=== PATIENT | female | born 1985 | race Hispanic/Latino ===

== ENCOUNTER 2017-10-11 11:38 | Inpatient (IN) | payer BC ==
[~2017-10-11] VITALS: Ht 157.5 cm; Wt 88.9 kg
[2017-10-11 12:20] VITALS: BP 123/62
[2017-10-11] MEDS ORDERED: ACETAMINOPHEN 325 MG TAB PO PRN (13:00)
[2017-10-11] MEDS: LACTATED RINGERS 1000ML 1,000 ML IV SCH ×2 (13:40→18:55)
[2017-10-11] MEDS: DEXAMETHASONE SOD PHOSPHATE 4 MG/ML 1ML VIAL IM SCH ×2 (13:50→18:54)
[2017-10-11] MEDS ORDERED: FERR1TAB22 PO (14:02)
[2017-10-11] MEDS ORDERED: PNV11TAB5 PO (14:02)
[2017-10-11] MEDS ORDERED: IRON1CAP31 PO (14:06)
[2017-10-11 15:35] VITALS: BP 122/70
[2017-10-11 19:56] VITALS: BP 105/68
[2017-10-11 23:07] VITALS: BP 111/63
[2017-10-12] MEDS: DEXAMETHASONE SOD PHOSPHATE 4 MG/ML 1ML VIAL IM SCH ×2 (00:44→06:16)
[2017-10-12] MEDS: LACTATED RINGERS 1000ML 1,000 ML IV SCH ×2 (00:47→06:22)
[2017-10-12 03:23] VITALS: BP 105/56
[2017-10-12 07:42] VITALS: BP 101/54
[2017-10-12 08:26] LABS: HEMATOCRIT 31.1 % (36-48); MEAN CORPUSCULAR HEMOGLOBIN 27.3 pg (27.0-33.0); MEAN CORPUSCULAR HGB CONC 34.2 g/dL (32.0-36.0); MEAN CORPUSCULAR VOLUME 79.8 fL (79-99); PLATELET COUNT (AUTO) 179 K/uL (130-400); RED CELL DISTRIBUTION WIDTH 16.9 % (11.0-15.5); WHITE BLOOD COUNT (AUTO) 8.6 K/uL (4.8-10.8)
[2017-10-12] MEDS: LACTATED RINGERS 1000ML 1,000 ML IV PRN (22:28)
[2017-10-13] MEDS: LACTATED RINGERS 1000ML 1,000 ML IV PRN ×2 (05:42→21:48)
[2017-10-13 07:24] LABS: HEPATITIS Bs ANTIGEN SCREEN P Negative (Negative)
[2017-10-13] MEDS ORDERED: PHARMACY COMMUNICATION MISC SCH (14:15)
[2017-10-13] MEDS: PS CMP PO SCH (14:44)
[2017-10-13] MEDS: VIT C PO SCH (14:44)
[2017-10-13] MEDS: IRON FUM PO SCH (14:44)
[2017-10-13] MEDS: [UNRECOGNIZED DRUG - OTHER] PO SCH (14:44)
[2017-10-13] MEDS: B3 PO SCH (14:44)
[2017-10-14] MEDS: LACTATED RINGERS 1000ML 1,000 ML IV PRN ×2 (05:07→22:01)
[2017-10-14] MEDS: B3 PO SCH (09:53)
[2017-10-14] MEDS: VIT C PO SCH (09:53)
[2017-10-14] MEDS: IRON FUM PO SCH (09:53)
[2017-10-14] MEDS: [UNRECOGNIZED DRUG - OTHER] PO SCH (09:53)
[2017-10-14] MEDS: PS CMP PO SCH (09:53)
[2017-10-15 03:49] VITALS: BP 87/50
[2017-10-15] MEDS: LACTATED RINGERS 1000ML 1,000 ML IV PRN ×2 (05:54→16:06)
[2017-10-15] MEDS: B3 PO SCH (09:00)
[2017-10-15] MEDS: VIT C PO SCH (09:00)
[2017-10-15] MEDS: PS CMP PO SCH (09:00)
[2017-10-15] MEDS: [UNRECOGNIZED DRUG - OTHER] PO SCH (09:00)
[2017-10-15] MEDS: IRON FUM PO SCH (09:00)
[2017-10-15 09:25] VITALS: BP 106/61
[2017-10-15 11:28] VITALS: BP 98/62
[2017-10-15] MEDS: DEXAMETHASONE SOD PHOSPHATE 4 MG/ML 1ML VIAL IM SCH ×2 (13:00→19:00)
[2017-10-15 15:39] VITALS: BP 114/66
[2017-10-15 19:25] VITALS: BP 104/64
[2017-10-15 23:24] VITALS: BP 114/69
[2017-10-16] MEDS: LACTATED RINGERS 1000ML 1,000 ML IV PRN ×2 (02:18→11:22)
[2017-10-16 03:23] VITALS: BP 99/57
[2017-10-16 07:20] VITALS: BP 105/61
[2017-10-16 11:21] VITALS: BP 109/64
[2017-10-16] MEDS: IRON FUM PO SCH (11:22)
[2017-10-16] MEDS: B3 PO SCH (11:22)
[2017-10-16] MEDS: PS CMP PO SCH (11:22)
[2017-10-16] MEDS: VIT C PO SCH (11:22)
[2017-10-16] MEDS: [UNRECOGNIZED DRUG - OTHER] PO SCH (11:22)
[2017-10-16 15:54] VITALS: BP 109/69
[2017-10-16] MEDS: DEXAMETHASONE SOD PHOSPHATE 4 MG/ML 1ML VIAL IM SCH (19:00)
[2017-10-16 19:41] VITALS: BP 103/62
[2017-10-16 23:16] VITALS: BP 97/61
[2017-10-17] MEDS: LACTATED RINGERS 1000ML 1,000 ML IV PRN ×4 (00:02→20:44)
[2017-10-17 03:22] VITALS: BP 98/51
[2017-10-17 07:22] VITALS: BP 98/55
[2017-10-17] MEDS: B3 PO SCH (09:00)
[2017-10-17] MEDS: PS CMP PO SCH (09:00)
[2017-10-17] MEDS: [UNRECOGNIZED DRUG - OTHER] PO SCH (09:00)
[2017-10-17] MEDS: VIT C PO SCH (09:00)
[2017-10-17] MEDS: IRON FUM PO SCH (09:00)
[2017-10-17 11:28] VITALS: BP 95/59
[2017-10-17 15:47] VITALS: BP 95/63
[2017-10-17 19:35] VITALS: BP 101/62
[2017-10-17 23:15] VITALS: BP 105/61
[2017-10-18 03:24] VITALS: BP 93/52
[2017-10-18] MEDS: LACTATED RINGERS 1000ML 1,000 ML IV PRN ×3 (04:35→23:10)
[2017-10-18 07:29] VITALS: BP 100/65
[2017-10-18] MEDS: PS CMP PO SCH (09:00)
[2017-10-18] MEDS: B3 PO SCH (09:00)
[2017-10-18] MEDS: [UNRECOGNIZED DRUG - OTHER] PO SCH (09:00)
[2017-10-18] MEDS: IRON FUM PO SCH (09:00)
[2017-10-18] MEDS: VIT C PO SCH (09:00)
[2017-10-18 11:48] VITALS: BP 99/60
[2017-10-18] MEDS: DEXAMETHASONE SOD PHOSPHATE 4 MG/ML 1ML VIAL IM SCH ×2 (13:00→19:00)
[2017-10-18 15:37] VITALS: BP 103/63
[2017-10-18 19:53] VITALS: BP 100/61
[2017-10-18 23:41] VITALS: BP 103/68
[2017-10-19] MEDS: DEXAMETHASONE SOD PHOSPHATE 4 MG/ML 1ML VIAL IM SCH ×3 (01:00→19:00)
[2017-10-19 03:22] VITALS: BP 100/61
[2017-10-19 07:21] VITALS: BP 106/59
[2017-10-19] MEDS: PS CMP PO SCH (09:23)
[2017-10-19] MEDS: VIT C PO SCH (09:23)
[2017-10-19] MEDS: IRON FUM PO SCH (09:23)
[2017-10-19] MEDS: B3 PO SCH (09:23)
[2017-10-19] MEDS: [UNRECOGNIZED DRUG - OTHER] PO SCH (09:23)
[2017-10-19 11:53] VITALS: BP 102/61
[2017-10-19 15:53] VITALS: BP 100/63
[2017-10-19 19:40] VITALS: BP 80/61
[2017-10-19 23:19] VITALS: BP 102/60
[2017-10-20] MEDS: DEXAMETHASONE SOD PHOSPHATE 4 MG/ML 1ML VIAL IM SCH (01:00)
[2017-10-20 03:39] VITALS: BP 99/60
[2017-10-20 07:33] VITALS: BP 97/64
[2017-10-20] MEDS: PS CMP PO SCH (09:16)
[2017-10-20] MEDS: B3 PO SCH (09:16)
[2017-10-20] MEDS: IRON FUM PO SCH (09:16)
[2017-10-20] MEDS: [UNRECOGNIZED DRUG - OTHER] PO SCH (09:16)
[2017-10-20] MEDS: VIT C PO SCH (09:16)
[2017-10-20 11:25] VITALS: BP 99/58
[2017-10-20 15:59] VITALS: BP 92/57
[2017-10-20 19:41] VITALS: BP 103/64
[2017-10-20 23:00] VITALS: BP 109/60
[2017-10-21 03:21] VITALS: BP 99/53
[2017-10-21 07:42] VITALS: BP 100/60
[2017-10-21 11:38] VITALS: BP 108/50
[2017-10-21] MEDS: VIT C PO SCH (12:56)
[2017-10-21] MEDS: IRON FUM PO SCH (12:56)
[2017-10-21] MEDS: PS CMP PO SCH (12:56)
[2017-10-21] MEDS: [UNRECOGNIZED DRUG - OTHER] PO SCH (12:56)
[2017-10-21] MEDS: B3 PO SCH (12:56)
[2017-10-21 15:37] VITALS: BP 97/51
[2017-10-21 19:29] VITALS: BP 94/65
[2017-10-21 23:13] VITALS: BP 112/62
[2017-10-22 03:13] VITALS: BP 99/61
[2017-10-22 07:22] VITALS: BP 100/66
[2017-10-22] MEDS: VIT C PO SCH (09:00)
[2017-10-22] MEDS: PS CMP PO SCH (09:00)
[2017-10-22] MEDS: IRON FUM PO SCH (09:00)
[2017-10-22] MEDS: [UNRECOGNIZED DRUG - OTHER] PO SCH (09:00)
[2017-10-22] MEDS: B3 PO SCH (09:00)
[2017-10-22 11:20] VITALS: BP 89/51
[2017-10-22 15:33] VITALS: BP 94/64
[2017-10-22 19:42] VITALS: BP 99/65
[2017-10-22 23:35] VITALS: BP 97/58
[2017-10-23 03:05] VITALS: BP 107/75
[2017-10-23 07:44] VITALS: BP 90/56
[2017-10-23] MEDS: PS CMP PO SCH (09:00)
[2017-10-23] MEDS: IRON FUM PO SCH (09:00)
[2017-10-23] MEDS: VIT C PO SCH (09:00)
[2017-10-23] MEDS: [UNRECOGNIZED DRUG - OTHER] PO SCH (09:00)
[2017-10-23] MEDS: B3 PO SCH (09:00)
[2017-10-23 11:25] VITALS: BP 108/66
[2017-10-23] MEDS: DEXAMETHASONE SOD PHOSPHATE 4 MG/ML 1ML VIAL IM SCH ×2 (13:00→19:00)
[2017-10-23 16:10] VITALS: BP 100/62
[2017-10-23 19:39] VITALS: BP 105/66
[2017-10-23 23:22] VITALS: BP 103/63
[2017-10-24 03:39] VITALS: BP 115/69
[2017-10-24] MEDS: DEXAMETHASONE SOD PHOSPHATE 4 MG/ML 1ML VIAL IM SCH ×2 (07:00→13:00)
[2017-10-24 07:46] VITALS: BP 99/58
[2017-10-24] MEDS: [UNRECOGNIZED DRUG - OTHER] PO SCH (09:00)
[2017-10-24] MEDS: B3 PO SCH (09:00)
[2017-10-24] MEDS: VIT C PO SCH (09:00)
[2017-10-24] MEDS: IRON FUM PO SCH (09:00)
[2017-10-24] MEDS: PS CMP PO SCH (09:00)
[2017-10-24 11:49] VITALS: BP 101/60
== END 2017-10-24 12:30 | disposition home or self-care (01) | DRG 781 ==
LOC: OBSVTOIN 11:38 → UNDOADMOB 11:38 → WSH 11:38 → INTOOBSV 11:38 → WSH 10-12 07:40 → LDH 10-12 07:40 → WSH 10-15 09:27
PROVIDERS: ADMIT Specialist; ATTEND Specialist
DX: O41.03X0 Oligohydramnios, third trimester, not applicable or unspecified (principal); O24.419 Gestational diabetes mellitus in pregnancy, unspecified control; O98.813 Other maternal infectious and parasitic diseases complicating pregnancy, third trimester; Z3A.33 33 weeks gestation of pregnancy; Z88.8 Allergy status to other drugs, medicaments and biological substances; Z91.018 Allergy to other foods
CPT/HCPCS: 36415; 59025; 76805; 76815; 76819; 82948; 85027; 86592; 86850; 86900; 86901; 87340; 96360; 96361; G0378; J1100; J7120

== ENCOUNTER 2021-05-25 08:27 | Observation (INO) | payer BC ==
[~2021-05-25] VITALS: Ht 162.6 cm; Wt 89.8 kg
[~2021-05-25 08:27] MED LIST: IRON1CAP31 PO; PNV11TAB5 PO
[2021-05-25] MEDS: DEXAMETHASONE SOD PHOSPHATE 4 MG/ML 1ML VIAL IM SCH ×3 (09:23→21:30)
[2021-05-25 09:34] VITALS: BP 111/67
[2021-05-25 11:03] VITALS: BP 106/57
[2021-05-25 16:35] VITALS: BP 108/61
[2021-05-25 19:48] VITALS: BP 109/66
[2021-05-25 23:08] VITALS: BP 105/61
[2021-05-26] MEDS: DEXAMETHASONE SOD PHOSPHATE 4 MG/ML 1ML VIAL IM SCH (03:11)
[2021-05-26 03:14] VITALS: BP 92/50
[2021-05-26 07:15] VITALS: BP 111/62
== END 2021-05-26 11:00 | disposition home or self-care (01) ==
LOC: LDH 08:27 → WSH 09:40
PROVIDERS: ADMIT Specialist; ATTEND Specialist
DX: O26.893 Other specified pregnancy related conditions, third trimester (principal); R10.2 Pelvic and perineal pain; Z3A.29 29 weeks gestation of pregnancy; Z79.899 Other long term (current) drug therapy
CPT/HCPCS: 59025; 82948 ×5; 96372 ×3; G0378 ×26; J1100 ×4

== ENCOUNTER 2021-06-27 21:07 | Observation (INO) | payer BC ==
[~2021-06-27] VITALS: Ht 162.6 cm; Wt 94.3 kg
[2021-06-27 21:08] VITALS: BP 119/77
[2021-06-27 21:47] LABS: APPEARANCE,URINE Cloudy (CLEAR); BILIRUBIN,URINE Negative (NEGATIVE); COLOR,URINE Yellow (YELLOW); GLUCOSE, URINE (UA) Negative (NEGATIVE); KETONES,URINE Negative (NEGATIVE); LEUKOCYTE ESTERASE ,URINE Small (NEGATIVE); NITRATE,URINE Negative (NEGATIVE); OCCULT BLOOD,URINE Negative (NEGATIVE); PROTEIN,URINE Negative (NEGATIVE)
[2021-06-27 21:56] LABS: RBC,URINE 0-1 /HPF (0-1)
[2021-06-27 21:57] LABS: AMORPHOUS SEDIMENT,UR Few /LPF (None Seen); BACTERIA,URINE Few /HPF (None Seen); MUCUS,URINE Rare LPF (None Seen); SQUAMOUS EPITHELIAL CELL,UR Moderate /HPF (0-2)
== END 2021-06-27 22:21 | disposition home or self-care (01) ==
LOC: EDH 21:07 → LDH 21:19 → UNDOADMOB 21:23
PROVIDERS: ADMIT Specialist; ATTEND Specialist
DX: O26.893 Other specified pregnancy related conditions, third trimester (principal); R10.32 Left lower quadrant pain; O24.410 Gestational diabetes mellitus in pregnancy, diet controlled; Z3A.34 34 weeks gestation of pregnancy
CPT/HCPCS: 81001; G0378; G0379

== ENCOUNTER 2021-07-05 15:36 | Inpatient (IN) | payer BC ==
[~2021-07-05] VITALS: Ht 162.6 cm; Wt 96.6 kg
[2021-07-05] MEDS ORDERED: LACTATED RINGERS 1000ML 1,000 ML IV ONE (16:57)
[2021-07-05 17:02] LABS: APPEARANCE,URINE Clear (CLEAR); BILIRUBIN,URINE Negative (NEGATIVE); COLOR,URINE Yellow (YELLOW); GLUCOSE, URINE (UA) Negative (NEGATIVE); KETONES,URINE Negative (NEGATIVE); LEUKOCYTE ESTERASE ,URINE Trace (NEGATIVE); NITRATE,URINE Negative (NEGATIVE); OCCULT BLOOD,URINE Moderate (NEGATIVE); PROTEIN,URINE Negative (NEGATIVE)
[2021-07-05 17:13] LABS: BACTERIA,URINE Few /HPF (None Seen); MUCUS,URINE Few LPF (None Seen); SQUAMOUS EPITHELIAL CELL,UR Moderate /HPF (0-2)
[2021-07-05 21:45] VITALS: BP 138/75
[2021-07-05] MEDS: LACTATED RINGERS 1000ML 1,000 ML IV SCH ×2 (23:00→23:40)
[2021-07-06] MEDS: AMPICILLIN 2GM VIAL IV SCH ×2 (08:27→14:17)
[2021-07-06] MEDS: MAGNESIUM SULFATE 40GM/1000ML 1,000 ML IV PRN (08:27)
[2021-07-06] MEDS ORDERED: LACTATED RINGERS 1000ML 1,000 ML IV PRN (08:30)
[2021-07-06] MEDS ORDERED: CALCIUM GLUC 1GM/10ML VIAL IV PRN (08:30)
[2021-07-06] MEDS ORDERED: MAGNESIUM 4GM PREMIX 100ML 100 ML IV SCH (08:30)
[2021-07-06 08:35] LABS: HEMATOCRIT 29.1 % (36-48); MEAN CORPUSCULAR HEMOGLOBIN 25.2 pg (27.0-33.0); MEAN CORPUSCULAR HGB CONC 32.6 g/dL (32.0-36.0); MEAN CORPUSCULAR VOLUME 77.2 fL (79-99); RED BLOOD CELL COUNT(AUTO) 3.77 MIL/uL (4.00-5.50); RED CELL DISTRIBUTION WIDTH 14.7 % (11.0-15.5); WHITE BLOOD COUNT (AUTO) 6.5 K/uL (4.8-10.8)
[2021-07-06] MEDS: AMPICILLIN 2GM+NS 100ML IV SCH (21:24)
[2021-07-07] MEDS: AMPICILLIN 2GM+NS 100ML IV SCH (03:30)
[2021-07-07] MEDS: MAGNESIUM SULFATE 40GM/1000ML 1,000 ML IV PRN (04:12)
[2021-07-07 06:12] LABS: HEPATITIS Bs ANTIGEN SCREEN P Negative (Negative)
== END 2021-07-07 11:05 | disposition home or self-care (01) | DRG 833 ==
LOC: EDH 15:36 → LDH 15:47 → OBSVTOIN 15:47 → INTOOBSV 15:47 → UNDOADMOB 15:47 → UNDODISIN 07-07 11:05
PROVIDERS: ADMIT Specialist; ATTEND Specialist
DX: O60.03 Preterm labor without delivery, third trimester (principal); O46.93 Antepartum hemorrhage, unspecified, third trimester; Z3A.35 35 weeks gestation of pregnancy
CPT/HCPCS: 36415; 81001; 82948; 83735; 85027; 86592; 86850; 86900; 86901; 87340; 96360; 96361; G0378; J0290; J3475; J7120

== ENCOUNTER 2021-07-15 20:08 | Observation (INO) | payer BC ==
[~2021-07-15] VITALS: Ht 212 cm; Wt 95.3 kg
[2021-07-15 20:11] VITALS: BP 127/93
[2021-07-15] MEDS ORDERED: PREN-196 PO (20:32)
[2021-07-15 20:45] LABS: APPEARANCE,URINE Clear (CLEAR); BILIRUBIN,URINE Negative (NEGATIVE); COLOR,URINE Yellow (YELLOW); GLUCOSE, URINE (UA) Negative (NEGATIVE); KETONES,URINE Negative (NEGATIVE); LEUKOCYTE ESTERASE ,URINE Trace (NEGATIVE); NITRATE,URINE Negative (NEGATIVE); OCCULT BLOOD,URINE Negative (NEGATIVE); PH,URINE 6.5 (5.0-8.0); PROTEIN,URINE Negative (NEGATIVE)
[2021-07-15 20:54] LABS: BACTERIA,URINE Few /HPF (None Seen); RBC,URINE None Seen /HPF (0-1); WBC,URINE 0-1 /HPF (0-1)
== END 2021-07-15 22:15 | disposition home or self-care (01) ==
LOC: EDH 20:08 → LDH 20:09
PROVIDERS: ADMIT Specialist; ATTEND Specialist
DX: O62.9 Abnormality of forces of labor, unspecified (principal); O24.419 Gestational diabetes mellitus in pregnancy, unspecified control; Z3A.36 36 weeks gestation of pregnancy
CPT/HCPCS: 81001; G0378 ×2; G0379

== ENCOUNTER 2021-07-19 11:29 | Inpatient (IN) | payer BC ==
[~2021-07-19] VITALS: Ht 162.6 cm; Wt 96.6 kg
[~2021-07-19 11:29] MED LIST changes: +PREN-196 PO
[2021-07-19 12:28] LABS: APPEARANCE,URINE Clear (CLEAR); BILIRUBIN,URINE Negative (NEGATIVE); COLOR,URINE Yellow (YELLOW); GLUCOSE, URINE (UA) Negative (NEGATIVE); KETONES,URINE Negative (NEGATIVE); LEUKOCYTE ESTERASE ,URINE Trace (NEGATIVE); NITRATE,URINE Negative (NEGATIVE); OCCULT BLOOD,URINE Negative (NEGATIVE); PH,URINE 6.5 (5.0-8.0); PROTEIN,URINE Negative (NEGATIVE)
[2021-07-19 12:30] LABS: MEAN CORPUSCULAR HEMOGLOBIN 24.6 pg (27.0-33.0); MEAN CORPUSCULAR HGB CONC 33.7 g/dL (32.0-36.0); MEAN CORPUSCULAR VOLUME 73.2 fL (79-99); PLATELET COUNT (AUTO) 197 K/uL (130-400); RED CELL DISTRIBUTION WIDTH 14.6 % (11.0-15.5)
[2021-07-19] MEDS ORDERED: LACTATED RINGERS 500 ML 500 ML IV PRN (12:30)
[2021-07-19] MEDS ORDERED: MEPERIDINE-PF 50 MG/ML SYG IVP PRN (12:30)
[2021-07-19] MEDS ORDERED: EPHEDRINE SULFATE 50 MG/ML AMPULE IVP PRN (12:30)
[2021-07-19] MEDS ORDERED: ROPIVACAINE 0.2% 100ML VIAL 100 ML EP PRN (12:30)
[2021-07-19] MEDS ORDERED: NALOXONE HCL 0.4 MG/1 ML ML IV PRN (12:30)
[2021-07-19] MEDS ORDERED: PROMETHAZINE HCL 25 MG/ML 1ML AMPULE IM PRN (12:30)
[2021-07-19 12:45] VITALS: BP 111/71
[2021-07-19] MEDS: LACTATED RINGERS 1000ML 1,000 ML IV PRN ×2 (12:45→14:29)
[2021-07-19 12:58] LABS: BACTERIA,URINE Few /HPF (None Seen); RBC,URINE 0-1 /HPF (0-1); WBC,URINE 0-1 /HPF (0-1)
[2021-07-19] MEDS ORDERED: LIDOCAINE HCL 1% 20 ML VIAL ONE (14:46)
[2021-07-19] MEDS: OXYTOCIN-LR 20 UNITS/1000 ML 1,000 ML IV SCH (15:19)
[2021-07-19] MEDS ORDERED: MEASLES/MUMPS/RUBELLA VACCINE, LIVE 0.5 ML/VIAL SQ PRN (16:30)
[2021-07-19] MEDS ORDERED: ACETAMINOPHEN WITH CODEINE 1 TAB TAB PO PRN (16:30)
[2021-07-19] MEDS ORDERED: ACETAMINOPHEN 325 MG TAB PO PRN (16:30)
[2021-07-19] MEDS ORDERED: DIPH,PERTUSS(ACELL),TET VAC/PF 0.5 ML VIAL IM PRN (16:30)
[2021-07-19] MEDS ORDERED: WITCH HAZEL 1 PAD TP PRN (16:30)
[2021-07-19] MEDS ORDERED: BENZOCAINE/LANOLIN/ALOE VERA 60 ML AEROSOL TP PRN (16:30)
[2021-07-19] MEDS ORDERED: LANOLIN 30GM OINTMENT TP PRN (16:30)
[2021-07-19 17:26] VITALS: BP 113/72
[2021-07-19 19:39] VITALS: BP 117/74
[2021-07-19] MEDS: DOCUSATE SODIUM 100 MG CAP PO SCH (20:38)
[2021-07-19 23:20] VITALS: BP 115/74
[2021-07-20 03:20] VITALS: BP 97/68
[2021-07-20] MEDS: IBUPROFEN 600 MG TABLET PO PRN ×2 (04:16→10:02)
[2021-07-20] MEDS: OXYTOCIN-LR 20 UNITS/1000 ML 1,000 ML IV SCH (05:31)
[2021-07-20 07:19] VITALS: BP 99/65
[2021-07-20 08:15] LABS: HEPATITIS Bs ANTIGEN SCREEN P Negative (Negative)
[2021-07-20] MEDS: DOCUSATE SODIUM 100 MG CAP PO SCH (10:00)
[2021-07-20 11:19] VITALS: BP 107/72
== END 2021-07-20 15:55 | disposition home or self-care (01) | DRG 807 ==
LOC: LDH 11:29 → WSH 17:30
PROVIDERS: ADMIT Specialist; ATTEND Specialist
PROC: 10E0XZZ Delivery of Products of Conception, External Approach (ICD-10-PCS; principal; 2021-07-19)
PROC: 10907ZC Drainage of Amniotic Fluid, Therapeutic from Products of Conception, Via Natural or Artificial Opening (ICD-10-PCS; 2021-07-19)
PROC: 3E0134Z Introduction of Serum, Toxoid and Vaccine into Subcutaneous Tissue, Percutaneous Approach (ICD-10-PCS; 2021-07-19)
DX: O62.3 Precipitate labor (principal); Z37.0 Single live birth; O28.1 Abnormal biochemical finding on antenatal screening of mother; O24.420 Gestational diabetes mellitus in childbirth, diet controlled; Z3A.37 37 weeks gestation of pregnancy; Z23 Encounter for immunization; Z88.8 Allergy status to other drugs, medicaments and biological substances; Z91.018 Allergy to other foods
CPT/HCPCS: 36415; 81001; 82947; 85027; 86592; 86850; 86900; 86901; 87340; 90707; G0378; J2590; J7120

== ENCOUNTER 2024-04-12 12:28 | Observation (INO) | payer BC ==
[~2024-04-12] VITALS: Ht 162.6 cm; Wt 98.4 kg
[~2024-04-12 12:28] MED LIST changes: -IRON1CAP31 PO; -PNV11TAB5 PO
[2024-04-12 12:35] VITALS: BP 137/89; PULSE 136; RESP 18; TEMP 98.7
[2024-04-12 12:59] LABS: BILIRUBIN,URINE NEGATIVE (NEGATIVE); COLOR,URINE YELLOW (YELLOW); GLUCOSE, URINE (UA) NEGATIVE (NEGATIVE); KETONES,URINE 10 mg/dL (NEGATIVE); LEUKOCYTE ESTERASE ,URINE 500 Leu/uL (NEGATIVE); NITRATE,URINE NEGATIVE (NEGATIVE); PH,URINE 6.5 (5.0-8.0); PROTEIN,URINE 30 mg/dL (NEGATIVE)
[2024-04-12 13:02] LABS: ADD UA MICROSCOPIC YES; APPEARANCE,URINE HAZY (CLEAR)
[2024-04-12 13:04] LABS: BACTERIA,URINE FEW /HPF (None Seen); MUCUS,URINE RARE LPF (None Seen); SQUAMOUS EPITHELIAL CELL,UR MANY /HPF (0-2)
== END 2024-04-12 14:00 | disposition home or self-care (01) ==
LOC: EDH 12:28 → LDH 12:38
PROVIDERS: ADMIT Obstetrics & Gynecology; ATTEND Obstetrics & Gynecology
DX: O62.9 Abnormality of forces of labor, unspecified (principal); Z3A.37 37 weeks gestation of pregnancy; Z79.899 Other long term (current) drug therapy
CPT/HCPCS: 87086; 81001; G0379; G0378

== ENCOUNTER 2024-04-27 22:06 | Inpatient (IN) | payer BC ==
[~2024-04-27] VITALS: Ht 157.5 cm; Wt 101.2 kg
[2024-04-27] MEDS ORDERED: OXYTOCIN-LR 30 UNITS/500ML 500 ML IV SCH (22:30)
[2024-04-27 22:43] LABS: ADD UA MICROSCOPIC YES; APPEARANCE,URINE CLEAR (CLEAR); BILIRUBIN,URINE NEGATIVE (NEGATIVE); COLOR,URINE COLORLESS (YELLOW); GLUCOSE, URINE (UA) NEGATIVE (NEGATIVE); KETONES,URINE NEGATIVE (NEGATIVE); LEUKOCYTE ESTERASE ,URINE 75 Leu/uL (NEGATIVE); NITRATE,URINE NEGATIVE (NEGATIVE); OCCULT BLOOD,URINE NEGATIVE (NEGATIVE); PH,URINE 6.5 (5.0-8.0); PROTEIN,URINE NEGATIVE (NEGATIVE); UROBILINOGEN,URINE 0.2 mg/dL (0.2-1.0)
[2024-04-27 22:45] LABS: BACTERIA,URINE FEW /HPF (None Seen); RBC,URINE 0-1 /HPF (0-1); SQUAMOUS EPITHELIAL CELL,UR RARE /HPF (0-2)
[2024-04-27] MEDS: LACTATED RINGERS 1000ML 1,000 ML IV PRN (22:50)
[2024-04-27 22:58] LABS: HEMATOCRIT 27.7 % (36-48); MEAN CORPUSCULAR HEMOGLOBIN 19.3 pg (27.0-33.0); MEAN CORPUSCULAR HGB CONC 29.6 g/dL (32.0-36.0); MEAN CORPUSCULAR VOLUME 65.3 fL (79-99); PLATELET COUNT (AUTO) 237 K/uL (130-400); RED BLOOD CELL COUNT(AUTO) 4.24 MIL/uL (4.00-5.50); WHITE BLOOD COUNT (AUTO) 8.5 K/uL (4.8-10.8)
[2024-04-28 00:19] LABS: HIV 1&2 ANTIBODY Non-Reactive (Negative); HIV-1 p24 Antigen Non-Reactive (Negative)
[2024-04-28] MEDS: OXYTOCIN-LR 30 UNITS/500ML 500 ML IV SCH ×2 (04:08→13:15)
[2024-04-28] MEDS ORDERED: LIDOCAINE HCL 1% 20 ML VIAL ONE (11:27)
[2024-04-28] MEDS ORDERED: MISOPROSTOL 200 MCG TABLET ONE (11:28)
[2024-04-28] MEDS: MISOPROSTOL 100 MCG TABLET PR ONE (12:42)
[2024-04-28] MEDS ORDERED: acetaMINOPHEN WITH coDEINE 1 TAB TAB PO PRN (13:00)
[2024-04-28] MEDS ORDERED: WITCH HAZEL 1 PAD TP PRN (13:00)
[2024-04-28] MEDS ORDERED: BENZOCAINE/LANOLIN/ALOE VERA 60 ML AEROSOL TP PRN (13:00)
[2024-04-28] MEDS ORDERED: LANOLIN 30GM OINTMENT TP PRN (13:00)
[2024-04-28] MEDS ORDERED: DIPH,PERTUSS(ACELL),TET VAC/PF 0.5 ML VIAL IM PRN (13:00)
[2024-04-28] MEDS ORDERED: MEASLES/MUMPS/RUBELLA VACCINE, LIVE 0.5 ML/VIAL SQ PRN (13:00)
[2024-04-28] MEDS ORDERED: acetaMINOPHEN 325 MG TAB PO PRN (13:00)
[2024-04-28 15:25] VITALS: BP 115/65; PULSE 74; RESP 18; TEMP 98.5
[2024-04-28 16:06] LABS: RAPID PLASMA REAGIN NONREACTIVE (NONREACTIVE)
[2024-04-28] MEDS ORDERED: DEXTROSE 5 %-0.45 % NACL 1,000 ML IV SCH (19:40)
[2024-04-28 20:22] VITALS: BP 127/57; PULSE 79; RESP 19; TEMP 98.2
[2024-04-28] MEDS: doCUSate SODIUM 100 MG CAP PO SCH (21:15)
[2024-04-28] MEDS: IBUPROFEN 600 MG TABLET PO PRN (21:16)
[2024-04-29 00:05] VITALS: BP 99/73; PULSE 71; RESP 17; TEMP 97.7
[2024-04-29 06:53] LABS: HEMATOCRIT 27.9 % (36-48); MEAN CORPUSCULAR HEMOGLOBIN 18.8 pg (27.0-33.0); MEAN CORPUSCULAR HGB CONC 28.7 g/dL (32.0-36.0); MEAN CORPUSCULAR VOLUME 65.5 fL (79-99); RED BLOOD CELL COUNT(AUTO) 4.26 MIL/uL (4.00-5.50); RED CELL DISTRIBUTION WIDTH 17.8 % (11.0-15.5); WHITE BLOOD COUNT (AUTO) 9.1 K/uL (4.8-10.8)
[2024-04-29 11:20] VITALS: BP 108/74; PULSE 74; RESP 18; TEMP 98.2
== END 2024-04-29 13:20 | disposition home or self-care (01) | DRG 807 ==
LOC: OBSVTOIN 22:06 → INTOOBSV 22:06 → LDH 22:06 → WSH 04-28 15:19
PROVIDERS: ADMIT Obstetrics & Gynecology; ATTEND Obstetrics & Gynecology
PROC: 10E0XZZ Delivery of Products of Conception, External Approach (ICD-10-PCS; principal; 2024-04-28)
PROC: 3E033VJ Introduction of Other Hormone into Peripheral Vein, Percutaneous Approach (ICD-10-PCS; 2024-04-28)
PROC: 10907ZC Drainage of Amniotic Fluid, Therapeutic from Products of Conception, Via Natural or Artificial Opening (ICD-10-PCS; 2024-04-28)
DX: O99.02 Anemia complicating childbirth (principal); Z37.0 Single live birth; D63.8 Anemia in other chronic diseases classified elsewhere; Z3A.39 39 weeks gestation of pregnancy
CPT/HCPCS: 36415; 81001; 85027; 86592; 86701; 86850; 86900; 86901; 87086; 87340; 87390; A4351; G0378; J2210